=== PATIENT | male | born 1960 | race Caucasian/White ===

== ENCOUNTER → 2024-01-31 | Outpatient (CLI) | payer OTHER ==
[~2024-01-31] VITALS: Ht 175.3 cm; Wt 95.3 kg
[2024-01-31] MEDS: albuterol 2.5 MG/3 ML nebule NEB PRN (13:46)
[2024-01-31 13:47] VITALS: PULSE 69; RESP 15; O2SAT 95
== END | disposition home or self-care (01) ==
LOC: RT 12:52
PROVIDERS: ATTEND Chiropractor
DX: J44.9 Chronic obstructive pulmonary disease, unspecified (principal)
CPT/HCPCS: 71046; 94060; 94760